=== PATIENT | female | born 1980 | race Two or more races ===

== ENCOUNTER 2022-02-25 18:21 | Emergency (ER) | payer OTHER ==
[~2022-02-25] VITALS: Ht 167.6 cm; Wt 80.0 kg
[2022-02-25 19:43] LABS: Urine Bacteria NONE SEEN /hpf (None Seen); Urine Blood 2+ /uL (Negative); Urine Mucus FEW (None Seen); Urine Specific Gravity 1.026 (1.001-1.035); Urine WBC 3 /hpf (0 - 5)
[2022-02-25 23:15] VITALS: BP 118/78
[2022-02-25] MEDS ORDERED: IBUP800T27 PO (23:58)
[2022-02-25] MEDS ORDERED: ACET325T82 PO (23:58)
== END 2022-02-26 00:36 | disposition home or self-care (01) ==
LOC: ER 18:21
DX: R51.9 Headache, unspecified (principal); R11.2 Nausea with vomiting, unspecified
CPT/HCPCS: 70450; 81001; 81025